=== PATIENT | female | born 1995 | race Caucasian/White ===

== ENCOUNTER 2019-12-04 08:04 | Inpatient (IN) | payer OTHER, SELFPAY ==
[~2019-12-04] VITALS: Ht 165.1 cm; Wt 84.3 kg
[2019-12-04] MEDS ORDERED: FERR325T3 PO (08:26)
[2019-12-04] MEDS ORDERED: VENL75TA2 PO (08:26)
[2019-12-04] MEDS ORDERED: VITATAB74 PO (08:26)
[2019-12-04] MEDS ORDERED: FLUT22IN INH (08:26)
[2019-12-04] MEDS ORDERED: FLON1SPR NARES (08:26)
[2019-12-04] MEDS ORDERED: LEVA45AE INH (08:26)
[2019-12-04] MEDS ORDERED: MULTCAP PO (08:26)
[2019-12-04 09:06] LABS: HEMATOCRIT 43.2 % (42.0-52.0); HEMOGLOBIN 14.5 g/dl (13.5-17.5); MEAN CORPUSCULAR HEMOGLOBIN 29.5 pg (27.0-33.0); MEAN CORPUSCULAR HGB CONC 33.6 g/dl (32.0-36.5); PLATELET COUNT, AUTOMATED 311 10^3/uL (150-450); RED BLOOD COUNT 4.91 10^6/uL (4.30-6.10); WHITE BLOOD COUNT 5.8 10^3/uL (4.0-10.0)
[2019-12-04 09:25] LABS: AMPHETAMINES LEVEL URINE NEGATIVE (NEGATIVE); BARBITURATES URINE NEGATIVE (NEGATIVE); BENZODIAZEPINES URINE NEGATIVE (NEGATIVE); CANNABINOIDS URINE NEGATIVE (NEGATIVE); COCAINE METABOLITE URINE NEGATIVE (NEGATIVE); METHADONE URINE NEGATIVE (NEGATIVE); OPIATES URINE NEGATIVE (NEGATIVE); PHENCYCLIDINE URINE NEGATIVE (NEGATIVE)
[2019-12-04 09:33] LABS: ACETAMINOPHEN LEVEL < 2.0 UG/ML (10.0-30.0); ALBUMIN 3.9 GM/DL (3.2-5.2); ALT/SGPT 38 U/L (12-78); BILIRUBIN,DIRECT 0.1 MG/DL (0.0-0.2); BILIRUBIN,TOTAL 0.4 MG/DL (0.2-1.0); BLOOD UREA NITROGEN 7 MG/DL (7-18); CALCIUM LEVEL 8.9 MG/DL (8.5-10.1); CARBON DIOXIDE LEVEL 28 MEQ/L (21-32); CHLORIDE LEVEL 105 MEQ/L (98-107); CREATININE FOR GFR 0.92 MG/DL (0.70-1.30); ETHYL ALCOHOL (ETHANOL) 0.004 % (0.000-0.010); GLOMERULAR FILTRATION RATE > 60.0 (>60); GLUCOSE, FASTING 87 MG/DL (70-100); POTASSIUM SERUM 3.7 MEQ/L (3.5-5.1); SALICYLATE LEVEL < 1.7 MG/DL (5.0-30.0); SODIUM LEVEL 140 MEQ/L (136-145); TOTAL PROTEIN 7.7 GM/DL (6.4-8.2)
[2019-12-04] MEDS ORDERED: MULT-90 PO (13:43)
[2019-12-04] MEDS ORDERED: VENL37.52 PO (13:43)
[2019-12-04] MEDS ORDERED: ALLE180T33 PO (13:43)
[2019-12-04] MEDS ORDERED: MAALOX 30 ML SUSP *UDC PO PRN (15:15)
[2019-12-04] MEDS ORDERED: MOM 30ML SUSPENSION UDC PO PRN (15:15)
[2019-12-04 16:03] VITALS: BP 146/88
[2019-12-05] MEDS: traZODone 50 MG TAB PO PRN ×2 (00:29→21:14)
[2019-12-05 06:16] VITALS: BP 124/67
--- NOTE | 2019-12-05 09:45 | HPEPDOC ---
[facility] Medical History & Physical Date of Admission December 04, 2019 Date of Service: December 05, 2019 History and Physical CHIEF COMPLAINT: Medical H&P for [facility] patient. HISTORY OF PRESENT ILLNESS: 24 yo female admitted to [facility] for suicide attempt, patient cut her left wrist. Denies any medical complaints. PAST MEDICAL HISTORY: Seasonal allergies PAST SURGICAL HISTORY: Denies ALLERGIES: Please see below. REVIEW OF SYSTEMS: Negative except as per HPI. HOME MEDICATIONS: Please see below. PHYSICAL EXAMINATION: VITAL SIGNS: See below General: NAD, sitting comfortably in chair HEENT: NC/AT, EOMI, PERRL Lungs: CTA B/L Heart: +S1S2, RRR Abd: soft, NT, +BS, obese Ext: no edema, superficial laceration left wrist LABORATORY DATA: See below. MICROBIOLOGY: Please see below. ASSESSMENT: 24 yo female admitted to [facility] for suicide attempt/ideation, with left wrist laceration. #SI - follow as per primary team, psychiatry Vital Signs Vital Signs Date Time Temp Pulse Resp B/P (MAP) Pulse Ox O2 Delivery O2 Flow Rate FiO2 12/05/19 06:16 97.8 98 12 124/67 (86) 99 12/04/19 08:10 Room Air Home Medications Scheduled Ferrous Sulfate (Ferrous Sulfate) 325 Mg Tablet.dr, 325 MG PO QHS Fexofenadine HCl (Adalgisa Allergy) 180 Mg Tablet, 180 MG PO DAILY Fluticasone Propionate (Flonase Allergy Relief) 9.9 Ml [place].susp, 1 SPRAY NARES DAILY Fluticasone Propionate (Flovent Hfa) 220 Mcg/Act Aer.w.adap, 1 PUFF INH DAILY Multivitamin (Multivitamin) 1 Each Tablet, 1 TAB PO QHS Venlafaxine HCl (Venlafaxine HCl ER) 37.5 Mg Cap.er.24h, 75 MG PO DAILY Scheduled PRN Levalbuterol Tartrate (Levalbuterol Tartrate Hfa) 15 Gm Hfa.aer.ad, 2 PUFF INH QID PRN for SHORTNESS OF BREATH Allergies Coded Allergies: No Known Allergies (Unverified , 12/04/19) A-FIB/CHADSVASC A-FIB History Current/History of A-Fib/PAF?: No JUANI BROOKS MD December 05, 2019 09:45
[2019-12-05] MEDS: VENLAFAXINE 37.5 MG TAB PO SCH (10:34)
--- NOTE | 2019-12-05 11:40 | MHHPEPDOC ---
General Date Of Admission: December 04, 2019 Legal Status: 9.39 Chief Complaint "Depression". History of Present Illness HISTORY OF THE PRESENT ILLNESS: Patient is a 24 -year-old , female, who as per ED result: "Patient is a dependent, whose is deployed to [place]. She reports h/o deressive episodes since 2013, with therapy while in college & medication from her PCP in [place]. She states that her was originally scheduled to return from deployment in January, however that was suddenly moved up due to the COVID-19 pandemic. With that plan, she moved here from [place] 1.5 months ago so that she'd be here when he arrived. She reports that his return was abruptly cancelled when 50% of the replacement soldiers tested positive, leaving his unit stuck there until the original return date in January. She describes essentially having nobody here, as her family remains in [place]. She says that she has met "a few" people since arriving here, however essentially sits alone in her home all day. "I don't do well alone all the time, which is why I stayed back home while my was deployed". Patient states that she has been gradually becoming more depressed since her arrival here, reaching the point of feeling suicidal over the last coule of days. She says that she was despondent and having thoughts of suicide last night, when she engaged in self-harm. She denies having any previous h/o suicidal or self-injurious behavior. She states that the cuts were too painful to ever attempt suicide by that method, although has thought about pills. Patient appears quite distressed, especially when describing these feelings. She was crying though nearly the entire interview, noting that she sometimes finds herself laying on the bathroom floor, crying at home. Additional sx include poor sleep & appetite, with weight loss.." Psychiatric Review of Systems Depression (2 or more weeks): depressed mood, anhedonia, insomnia/hypersomnia, feelings of excess/guilt, feelings of worthlesness (hopeless and helpless), decreased energy, difficulty concentrating, appetite changes, psychomotor changes Oliva (4 or more days of): denies Psychosis: denies PTSD: denies Anxiety: stressor related anxiety, panic attacks Anxiety/ 6 months or more of: easily fatigued, difficulty concentrating, sleep disturbance Past Psychiatric History Previous Psychiatric Diagnosis: Depression at 17 Previous Psychiatric Admissions: No, this is her first hospitalization Suicide Attempts: Denies Psychiatric Follow-up: Denies Psychiatric medications: Sertraline for awhile, Bupropion ( triggered anxiety), Venlafaxine. Her PCP used to prescribe them Past Medical History Medical Problems Ashma and seasonal allergies. 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 He has chronic lymphocytic leukemia, asthma and allergies. Mom has osteopenia Psychiatric Disorders: Yes (sister had depression) Addiction: Yes (Maternal grandfather was an alcoholic) Suicide Attemps/Completions: No Addiction History alcohol (ocassionally), other (marijuana, but is occasional) Social History Childhood: She says her childhood was sheltered, she feels ambivalent towards it, but overall she thinks it was fine. Grew up with both parents, she has one sister, ( 4 years older than the patient). She liked school but she felt she didn't thrive in College. She has bullied but it didn't affect her. Denies legal problems. , she doesn't have any children Abuse/Trauma: None Current Living Situation: Education: . Employment: . Social Support: . Legal: . Marital: . Mental Status Examination General Appearance: well groomed, appears stated age, hospital scubs/clothing Build: overweight Demeanor: average Eye Contact: average Activity: average Behavior: cooperative Speech: clear, spontaneous, reg/rate,rhythm,volume Mood: anxious, irritable Affect: full, appropriate, congruent, anxious Thought Process: logical/linear Thought Content (Delusions): none reported Thought Content (Other): none reported Thought Content (Aggressive): none reported Perception (Hallucinations): none reported Perception (Other): none reported Cognition (Impairment of): none reported Cognition(Intelligence Est.): average Oriented: Awake, Alert, Oriented times three Insight: poor Judgment: Improving Psychosis: Denies Diagnoses 1. Major Depressive disorder, recurrent, moderate 2. Adjustment disorder with anxious/depressed mood A-FIB/CHADSVASC A-FIB History Current/History of A-Fib/PAF?: No Current PO Anticoag Therapy: No Age/Risk Factor Scoring CHADSVASC: CHADSVASC Response (Comments) Value Age Risk Factor Age < 65 years old 0 Gender Risk Factor Female 1 Hx of CHF No 0 Hx of HTN No 0 Hx of Stroke/TIA/or VTE No 0 Hx of Diabetes No 0 Hx of Vascular Disease No 0 Total 1 Treatment Treatment ordered: NONE Reason Anticoagulant not given: Not indicated/[id number] Assessment The patient feels lonely, her was recently deployed to [place]. She asked her sister to call the [employer] to have him come back to this area. She could have been trying to manipulate the situation, in order to have him back home. She mentions she has been depressed before, she has taken different antidepressants, amongst them: Sertraline, Wellbutrin and lastly Venlafaxine. She said she took her 75 mgs Po daily dose the day before she came to the Hospital. She would like to continue taking her medication. Initial Treatment Plan 1. Patient was admitted on a [9.39] status. 2. Complete history was obtained. 3. With patients permission, family will be contacted and database will be expanded. 4. Patients medication regimen will be reviewed and changed accordingly. 5. Patient will be provided with protected environment. 6. Patient will be treated with individual, group, and milieu therapies. 7. Patient will receive supportive psych-education. 8. Discharge planning will commence immediately. 9. Outpatient follow-up treatment will be strongly recommended. 10. The initial treatment plan will focus initially on: * Depression. * Risk for suicide * ineffective coping ESTIMATED LENGTH OF STAY: 2-3 DAYS. TIME SPENT COUNSELING AND COORDINATING INITIAL CARE: 60 minutes. Vital Signs Vital Signs Date Time Temp Pulse Resp B/P (MAP) Pulse Ox O2 Delivery O2 Flow Rate FiO2 12/05/19 06:16 97.8 98 12 124/67 (86) 99 12/04/19 08:10 Room Air Medications Scheduled Ferrous Sulfate (Ferrous Sulfate) 325 Mg Tablet.dr, 325 MG PO QHS, (Reported) Fexofenadine HCl (Adalgisa Allergy) 180 Mg Tablet, 180 MG PO DAILY, (Reported) Fluticasone Propionate (Flonase Allergy Relief) 9.9 Ml [place].susp, 1 SPRAY NARES DAILY, (Reported) Fluticasone Propionate (Flovent Hfa) 220 Mcg/Act Aer.w.adap, 1 PUFF INH DAILY, (Reported) Multivitamin (Multivitamin) 1 Each Tablet, 1 TAB PO QHS, (Reported) Venlafaxine HCl (Venlafaxine HCl ER) 37.5 Mg Cap.er.24h, 75 MG PO DAILY, (Reported) Scheduled PRN Levalbuterol Tartrate (Levalbuterol Tartrate Hfa) 15 Gm Hfa.aer.ad, 2 PUFF INH QID PRN for SHORTNESS OF BREATH, (Reported) Allergies Coded Allergies: No Known Allergies (Unverified , 12/04/19) IAN GONZALEZ MD December 05, 2019 10:21
[2019-12-05] MEDS: FEXOFENADINE 60 MG TAB PO SCH (14:11)
[2019-12-05] MEDS: LEVALBUTEROL HFA 45MCG/ACT 15 GM INHALER INH SCH ×2 (16:31→21:00)
[2019-12-05] MEDS: FLUTICASONE HFA 220 MCG 12 GM INHALER (FLOVENT) INH SCH (16:31)
[2019-12-05 16:37] VITALS: BP 116/65
[2019-12-05] MEDS: FERROUS SULFATE 325MG TAB PO SCH (21:14)
[2019-12-05] MEDS: MULTIVITAMINS/MINERALS THERAP 1 TAB PO SCH (21:14)
[2019-12-06 06:18] VITALS: BP 131/69
[2019-12-06] MEDS: FLUTICASONE HFA 220 MCG 12 GM INHALER (FLOVENT) INH SCH (08:27)
[2019-12-06] MEDS: VENLAFAXINE 37.5 MG TAB PO SCH (08:28)
[2019-12-06] MEDS: FEXOFENADINE 60 MG TAB PO SCH (08:28)
[2019-12-06] MEDS ORDERED: LEVALBUTEROL HFA 45MCG/ACT 15 GM INHALER INH PRN (08:45)
[2019-12-06] MEDS: FLUTICASONE PROP 0.05% NASAL SPRAY 16 GM (FLONASE) NARES SCH (09:50)
--- NOTE | 2019-12-06 11:58 | MHIPNPDOC ---
[facility] Progress Note Progress Note DATE OF SERVICE: 12/06/19 HISTORY: HISTORY OF THE PRESENT ILLNESS: Patient is a 24 -year-old , female, who as per ED result: "Patient is a dependent, whose is deployed to [place]. She reports h/o deressive episodes since 2013, with therapy while in college & medication from her PCP in [place]. She states that her was originally scheduled to return from deployment in January, however that was suddenly moved up due to the COVID-19 pandemic. With that plan, she moved here from [place] 1.5 months ago so that she'd be here when he arrived. She reports that his return was abruptly cancelled when 50% of the replacement soldiers tested positive, leaving his unit stuck there until the original return date in January. She describes essentially having nobody here, as her family remains in [place]. She says that she has met "a few" people since arriving here, however essentially sits alone in her home all day. "I don't do well alone all the time, which is why I stayed back home while my was deployed". Patient states that she has been gradually becoming more depressed since her arrival here, reaching the point of feeling suicidal over the last coule of days. She says that she was despondent and having thoughts of suicide last night, when she engaged in self-harm. She denies having any previous h/o suicidal or self-injurious behavior. She states that the cuts were too painful to ever attempt suicide by that method, although has thought about pills. Patient appears quite distressed, especially when describing these feelings. She was crying though nearly the entire interview, noting that she sometimes finds herself laying on the bathroom floor, crying at home. Additional sx include poor sleep & appetite, with weight loss.." VITAL SIGNS: See below. NEW TEST RESULTS: See below CURRENT MEDICATIONS: See below. Mental Status Examination General Appearance: well groomed, appears stated age, hospital scrubs/clothing Build: overweight Demeanor: cooperative Eye Contact: average Activity: average Behavior: cooperative Speech: clear, spontaneous, reg/rate,rhythm,volume Mood: "I'm OK" Affect: Congruent with mood Thought Process: logical/linear Thought Content (Delusions): none reported Thought Content (Other): Denies SI/HI, thought delusions Thought Content (Aggressive): none reported Perception (Hallucinations): none reported Perception (Other): none reported Cognition (Impairment of): none reported Cognition(Intelligence Est.): average Oriented: Awake, Alert, Oriented times three Insight: poor Judgment: Improving Psychosis: Denies Diagnoses 1. Major Depressive disorder, recurrent, moderate 2. Adjustment disorder with anxious/depressed mood ASSESSMENT: Patient agrees that she needs therapy, she says she will seek help at [facility]. She has agreed with medication increse to 112.5 mgs PO daily, she is actually on 75 mgs Po daily MANAGEMENT PLAN: As above TIME SPENT: 15 minutes. Vital Signs Vital Signs Date Time Temp Pulse Resp B/P (MAP) Pulse Ox O2 Delivery O2 Flow Rate FiO2 12/06/19 06:18 98.3 65 12 131/69 (89) 99 Room Air Current Medications Current Medications Medications (Trade) Dose Ordered Sig/Jennifer Route PRN Reason Start Time Stop Time Status Last Admin Dose Admin Acetaminophen (Tylenol Tab) 650 mg Q6HP PRN PO HEADACHE or DISCOMFORT 12/04/19 15:15 Al Hydrox/Mg Hydrox/Simethicone (Mylanta) 30 ml Q4HP PRN PO HEARTBURN/INDIGESTION 12/04/19 15:15 Ferrous Sulfate (Ferrous Sulfate) 325 mg QHS PO 12/05/19 21:00 12/05/19 21:14 Fexofenadine HCl (Adalgisa) 180 mg DAILY PO 12/05/19 09:00 12/06/19 08:28 Fluticasone Propionate (Flonase 0.05% Nasal [place]) 1 spray DAILY NARES 12/06/19 09:00 12/06/19 09:50 Fluticasone Propionate (Flovent Hfa 220mcg) 1 puff DAILY INH 12/05/19 09:00 12/06/19 08:27 Home Med (Med Rec Complete!) ASDIRECTED XX 12/04/19 13:45 12/04/19 13:46 DC Levalbuterol HCl (Xopenex Hfa) 2 puff QID INH 12/05/19 17:00 12/06/19 08:30 DC Levalbuterol HCl (Xopenex Hfa) 2 puff QIDP PRN INH SHORTNESS OF BREATH 12/06/19 08:45 Magnesium Hydroxide (Milk Of Magnesia) 30 ml DAILYPRN PRN PO CONSTIPATION 12/04/19 15:15 Multivitamins (Theragram-M) 1 tab QHS PO 12/05/19 21:00 12/05/19 21:14 Trazodone HCl (Desyrel) 50 mg QHSP PRN PO INSOMNIA 12/04/19 15:15 12/05/19 21:14 Venlafaxine HCl (Effexor) 75 mg QAM PO 12/05/19 09:00 12/06/19 08:28 Allergies Coded Allergies: No Known Allergies (Unverified , 12/04/19) IAN GONZALEZ MD December 06, 2019 11:33
[2019-12-06 18:00] VITALS: BP 123/81
[2019-12-06] MEDS: ACETAMINOPHEN TAB 650MG DOSE (2X325MG) PO PRN (20:07)
[2019-12-06] MEDS: MULTIVITAMINS/MINERALS THERAP 1 TAB PO SCH (20:07)
[2019-12-06] MEDS: FERROUS SULFATE 325MG TAB PO SCH (20:07)
[2019-12-06] MEDS: traZODone 50 MG TAB PO PRN (21:33)
[2019-12-07 05:53] VITALS: BP 116/58
[2019-12-07] MEDS: VENLAFAXINE 37.5 MG TAB PO SCH (08:30)
[2019-12-07] MEDS: FEXOFENADINE 60 MG TAB PO SCH (08:30)
[2019-12-07] MEDS: FLUTICASONE PROP 0.05% NASAL SPRAY 16 GM (FLONASE) NARES SCH (08:31)
[2019-12-07] MEDS: FLUTICASONE HFA 220 MCG 12 GM INHALER (FLOVENT) INH SCH (08:31)
[2019-12-07] MEDS ORDERED: VENLAFAXINE 37.5 MG TAB PO SCH (09:00)
--- NOTE | 2019-12-07 09:26 | MHIPNPDOC ---
[facility] Progress Note Progress Note DATE OF SERVICE: 12/07/19 HISTORY: . VITAL SIGNS: See below. NEW TEST RESULTS: . CURRENT MEDICATIONS: See below. MENTAL STATUS EXAMINATION: Patient is a -year old female, who is . Speech: Is . Language skills are . Thought processes including: . Thought content: . Abstract reasoning, and computation: . Description of asso ciations: . Description of abnormal or psychotic thoughts: . Judgment: . Insight: [very limited, good, fair. poor]. Orientation: . Recent and remote memory: . Attention span and concentration: . Language: . Fund of knowledge: . Mood: . Affect: . DIAGNOSES: 1. . 2. . 3. . ASSESSMENT: MANAGEMENT PLAN: . TIME SPENT: minutes. Vital Signs Vital Signs Date Time Temp Pulse Resp B/P (MAP) Pulse Ox O2 Delivery O2 Flow Rate FiO2 12/07/19 05:53 98.4 77 14 116/58 (77) 12/06/19 06:18 99 Room Air Vital Signs Date Time Temp Pulse Resp B/P (MAP) Pulse Ox O2 Delivery O2 Flow Rate FiO2 12/07/19 05:53 98.4 77 14 116/58 (77) 12/06/19 06:18 99 Room Air Current Medications Current Medications Medications (Trade) Dose Ordered Sig/Jennifer Route PRN Reason Start Time Stop Time Status Last Admin Dose Admin Acetaminophen (Tylenol Tab) 650 mg Q6HP PRN PO HEADACHE or DISCOMFORT 12/04/19 15:15 12/06/19 20:07 Al Hydrox/Mg Hydrox/Simethicone (Mylanta) 30 ml Q4HP PRN PO HEARTBURN/INDIGESTION 12/04/19 15:15 Ferrous Sulfate (Ferrous Sulfate) 325 mg QHS PO 12/05/19 21:00 12/06/19 20:07 Fexofenadine HCl (Adalgisa) 180 mg DAILY PO 12/05/19 09:00 12/07/19 08:30 Fluticasone Propionate (Flonase 0.05% Nasal [place]) 1 spray DAILY NARES 12/06/19 09:00 12/07/19 08:31 Fluticasone Propionate (Flovent Hfa 220mcg) 1 puff DAILY INH 12/05/19 09:00 12/07/19 08:31 Home Med (Med Rec Complete!) ASDIRECTED XX 12/04/19 13:45 12/04/19 13:46 DC Levalbuterol HCl (Xopenex Hfa) 2 puff QID INH 12/05/19 17:00 12/06/19 08:30 DC Levalbuterol HCl (Xopenex Hfa) 2 puff QIDP PRN INH SHORTNESS OF BREATH 12/06/19 08:45 Magnesium Hydroxide (Milk Of Magnesia) 30 ml DAILYPRN PRN PO CONSTIPATION 12/04/19 15:15 Multivitamins (Theragram-M) 1 tab QHS PO 12/05/19 21:00 12/06/19 20:07 Trazodone HCl (Desyrel) 50 mg QHSP PRN PO INSOMNIA 12/04/19 15:15 12/06/19 21:33 Venlafaxine HCl (Effexor) 37.5 mg DAILY PO 12/07/19 09:00 UNV Venlafaxine HCl (Effexor) 75 mg QAM PO 12/05/19 09:00 12/06/19 11:45 DC 12/06/19 08:28 Venlafaxine HCl (Effexor) 112.5 mg DAILY PO 12/07/19 09:00 12/07/19 08:30 Allergies Coded Allergies: No Known Allergies (Unverified , 12/04/19) Initial Treatment Plan 1. Patient was admitted on a [9.39] status. 2. Complete history was obtained. 3. With patients permission, family will be contacted and database will be expanded. 4. Patients medication regimen will be reviewed and changed accordingly. 5. Patient will be provided with protected environment. 6. Patient will be treated with individual, group, and milieu therapies. 7. Patient will receive supportive psych-education. 8. Discharge planning will commence immediately. 9. Outpatient follow-up treatment will be strongly recommended. 10. The initial treatment plan will focus initially on: * Depression. * Risk for suicide. ESTIMATED LENGTH OF STAY: - DAYS. TIME SPENT COUNSELING AND COORDINATING INITIAL CARE: minutes. Medications Scheduled Ferrous Sulfate (Ferrous Sulfate) 325 Mg Tablet.dr, 325 MG PO QHS, (Reported) Fexofenadine HCl (Adalgisa Allergy) 180 Mg Tablet, 180 MG PO DAILY, (Reported) Fluticasone Propionate (Flonase Allergy Relief) 9.9 Ml [place].susp, 1 SPRAY NARES DAILY, (Reported) Fluticasone Propionate (Flovent Hfa) 220 Mcg/Act Aer.w.adap, 1 PUFF INH DAILY, (Reported) Multivitamin (Multivitamin) 1 Each Tablet, 1 TAB PO QHS, (Reported) Venlafaxine HCl (Venlafaxine HCl ER) 37.5 Mg Cap.er.24h, 75 MG PO DAILY, (Reported) Scheduled PRN Levalbuterol Tartrate (Levalbuterol Tartrate Hfa) 15 Gm Hfa.aer.ad, 2 PUFF INH QID PRN for SHORTNESS OF BREATH, (Reported) MICHAEL PERALTA DO December 07, 2019 09:26
--- NOTE | 2019-12-07 09:45 | MHDSPDOC ---
[facility] Discharge Summary Discharge Summary DATE OF ADMISSION: December 04, 2019 at 15:10 DATE OF DISCHARGE: DISCHARGE DIAGNOSES: 1. . 2. . REASON FOR ADMISSION: CONSULTANTS INVOLVED: TREATMENT AND PROGRESS ON THE UNIT : . HOSPITAL COURSE: DISCHARGE ASSESSMENT: MENTAL STATUS EXAMINATION ON DISCHARGE: Patient is a -year old female, who is . Speech is . Language skills are . Thought processes including: . Thought content: . Abstract reasoning, and computation: . Description of associations: . Description of abnormal or psychotic thoughts: . Judgment: . Insight: . Orientation to . Recent and remote memory: . Attention span and concentration: . Language: . Fund of knowledge: . Mood: . Affect: . MEDICATIONS ON DISCHARGE: - for . - for . - for . PLAN/FOLLOWUP ARRANGEMENTS: . The amount of time spent in the coordination of care for this patient was approximately minutes. Vital Signs/I&Os Vital Signs Date Time Temp Pulse Resp B/P (MAP) Pulse Ox O2 Delivery O2 Flow Rate FiO2 12/07/19 05:53 98.4 77 14 116/58 (77) 12/06/19 06:18 99 Room Air Medications Scheduled Ferrous Sulfate (Ferrous Sulfate) 325 Mg Tablet.dr, 325 MG PO QHS, (Reported) Fexofenadine HCl (Adalgisa Allergy) 180 Mg Tablet, 180 MG PO DAILY, (Reported) Fluticasone Propionate (Flonase Allergy Relief) 9.9 Ml [place].susp, 1 SPRAY NARES DAILY, (Reported) Fluticasone Propionate (Flovent Hfa) 220 Mcg/Act Aer.w.adap, 1 PUFF INH DAILY, (Reported) Multivitamin (Multivitamin) 1 Each Tablet, 1 TAB PO QHS, (Reported) Venlafaxine HCl (Venlafaxine HCl ER) 37.5 Mg Cap.er.24h, 75 MG PO DAILY, (Reported) Scheduled PRN Levalbuterol Tartrate (Levalbuterol Tartrate Hfa) 15 Gm Hfa.aer.ad, 2 PUFF INH QID PRN for SHORTNESS OF BREATH, (Reported) Allergies Coded Allergies: No Known Allergies (Unverified , 12/04/19) MICHAEL PERALTA DO December 07, 2019 09:45
--- NOTE | 2019-12-07 09:51 | MHIPNPDOC ---
Text Note Date of Service The patient was seen on 12/07/19. NOTE 24-year-old woman with a history of situational depression presents for follow- up, she initially wanted to leave but subsequent he changed her mind quite quickly. The patient has notably been unengaged in treatment primarily playing cards in the lounge. She is had no other behavioral problems and reports that her depression is "fine" with no loss of interest, fatigue or anxiety problems. She asked to stay another night on a voluntary understanding. Current Medications Medications (Trade) Dose Ordered Sig/Jennifer Route PRN Reason Start Time Stop Time Status Last Admin Dose Admin Acetaminophen (Tylenol Tab) 650 mg Q6HP PRN PO HEADACHE or DISCOMFORT 12/04/19 15:15 12/06/19 20:07 Al Hydrox/Mg Hydrox/Simethicone (Mylanta) 30 ml Q4HP PRN PO HEARTBURN/INDIGESTION 12/04/19 15:15 Ferrous Sulfate (Ferrous Sulfate) 325 mg QHS PO 12/05/19 21:00 12/06/19 20:07 Fexofenadine HCl (Adalgisa) 180 mg DAILY PO 12/05/19 09:00 12/07/19 08:30 Fluticasone Propionate (Flonase 0.05% Nasal [place]) 1 spray DAILY NARES 12/06/19 09:00 12/07/19 08:31 Fluticasone Propionate (Flovent Hfa 220mcg) 1 puff DAILY INH 12/05/19 09:00 12/07/19 08:31 Home Med (Med Rec Complete!) ASDIRECTED XX 12/04/19 13:45 12/04/19 13:46 DC Levalbuterol HCl (Xopenex Hfa) 2 puff QID INH 12/05/19 17:00 12/06/19 08:30 DC Levalbuterol HCl (Xopenex Hfa) 2 puff QIDP PRN INH SHORTNESS OF BREATH 12/06/19 08:45 Magnesium Hydroxide (Milk Of Magnesia) 30 ml DAILYPRN PRN PO CONSTIPATION 12/04/19 15:15 Multivitamins (Theragram-M) 1 tab QHS PO 12/05/19 21:00 12/06/19 20:07 Trazodone HCl (Desyrel) 50 mg QHSP PRN PO INSOMNIA 12/04/19 15:15 12/06/19 21:33 Venlafaxine HCl (Effexor) 37.5 mg DAILY PO 12/07/19 09:00 UNV Venlafaxine HCl (Effexor) 75 mg QAM PO 12/05/19 09:00 12/06/19 11:45 DC 12/06/19 08:28 Venlafaxine HCl (Effexor) 112.5 mg DAILY PO 12/07/19 09:00 12/07/19 08:30 Review of Systems Review of Systems General: Reports: Normal Appetite Cardiovascular: Denies: Chest Pain, Palpitations, Orthopnea, Paroxysmal Noc. Dyspnea, Lt Headedness Gastrointestinal: Denies: Nausea, Vomiting, Abdominal Pain, Diarrhea, Constipation, Melena, Hematochezia, Other Symptoms Psych: Reports: Mood Normal Mental Status Examination General Appearance: well groomed Build: average Demeanor: average Eye Contact: average Activity: average Behavior: cooperative Speech: clear Mood: euthymic Affect: full Thought Process: logical/linear Thought Content (Delusions): none reported Thought Content (Other): none reported Thought Content (Aggressive): none reported Perception (Hallucinations): none reported Perception (Other): none reported Cognition (Impairment of): none reported Cognition(Intelligence Est.): average Oriented: Awake Insight: fair Judgment: Fair Psychosis: Denies Assessment 24-year-old woman with likely cluster B personality traits presents follow-up, she will likely be discharged tomorrow as she does not meet involuntary criteria. Her situational problem is likely exacerbated by underling cluster B personality traits. Problem List Problems: (1) Depression Status: Acute Response to Treatment: Improving Discussed With: Nurse, Patient Problem Text: Continue Effexor 112.5 XL daily (2) Suicidal ideation Status: Resolved (3) Adjustment disorder Status: Resolved (4) Cluster B personality disorder Status: Chronic Response to Treatment: Stable Discussed With: Nurse Problem Text: Monitor for any decompensation or behavioral problems Vital Signs Vital Signs Date Time Temp Pulse Resp B/P (MAP) Pulse Ox O2 Delivery O2 Flow Rate FiO2 12/07/19 05:53 98.4 77 14 116/58 (77) 12/06/19 06:18 99 Room Air Medications Scheduled Ferrous Sulfate (Ferrous Sulfate) 325 Mg Tablet.dr, 325 MG PO QHS, (Reported) Fexofenadine HCl (Adalgisa Allergy) 180 Mg Tablet, 180 MG PO DAILY, (Reported) Fluticasone Propionate (Flonase Allergy Relief) 9.9 Ml [place].susp, 1 SPRAY NARES DAILY, (Reported) Fluticasone Propionate (Flovent Hfa) 220 Mcg/Act Aer.w.adap, 1 PUFF INH DAILY, (Reported) Multivitamin (Multivitamin) 1 Each Tablet, 1 TAB PO QHS, (Reported) Venlafaxine HCl (Venlafaxine HCl ER) 37.5 Mg Cap.er.24h, 75 MG PO DAILY, (Reported) Scheduled PRN Levalbuterol Tartrate (Levalbuterol Tartrate Hfa) 15 Gm Hfa.aer.ad, 2 PUFF INH QID PRN for SHORTNESS OF BREATH, (Reported) Allergies Coded Allergies: No Known Allergies (Unverified , 12/04/19) MICHAEL PERALTA DO December 07, 2019 09:51
[2019-12-07] MEDS: ACETAMINOPHEN TAB 650MG DOSE (2X325MG) PO PRN (16:45)
[2019-12-07 18:00] VITALS: BP 142/62
[2019-12-07] MEDS: MULTIVITAMINS/MINERALS THERAP 1 TAB PO SCH (20:17)
[2019-12-07] MEDS: FERROUS SULFATE 325MG TAB PO SCH (20:17)
[2019-12-07] MEDS ORDERED: IBUPROFEN 600 MG TAB PO ONE (21:45)
[2019-12-07] MEDS: traZODone 50 MG TAB PO PRN (21:45)
[2019-12-08 06:13] VITALS: BP 123/65
[2019-12-08] MEDS: FLUTICASONE HFA 220 MCG 12 GM INHALER (FLOVENT) INH SCH (08:22)
[2019-12-08] MEDS: FLUTICASONE PROP 0.05% NASAL SPRAY 16 GM (FLONASE) NARES SCH (08:22)
[2019-12-08] MEDS: FEXOFENADINE 60 MG TAB PO SCH (08:22)
[2019-12-08] MEDS: VENLAFAXINE 37.5 MG TAB PO SCH (08:22)
--- NOTE | 2019-12-08 09:06 | MHDSPDOC ---
[facility] Discharge Summary Discharge Summary DATE OF ADMISSION: December 04, 2019 at 15:10 DATE OF DISCHARGE:December 08, 2019 at 16:06 DISCHARGE DIAGNOSES: 1. Unspecified depressive disorder. 2.. Cluster B personality traits. REASON FOR ADMISSION: 24-year-old woman admitted after making passive suicidal statements, she had reportedly threatened to cut herself. CONSULTANTS INVOLVED: hospitalist screening TREATMENT AND PROGRESS ON THE UNIT : the patient was admitted to the inpatient mental health unit, she was initially started on a sufficient antidepressant and observed. She did well without any major problems, she was notably more interested in socializing that engaging in treatment sincerely. She generally did well without any major aggression or suicidal ideation, recurring, she wants to stay longer and was extended for an extra day, at her request.. DISCHARGE ASSESSMENT: 24-year-old woman with likely situational related depression and cluster B personality traits presents in this treated with sufficient antidepressant and supportive treatment The patient at the time of discharge did not meet criteria for involuntary admission/extension due to having a normal mental status exam, fair insight into the situation, They are engaged in the discharge process, as well as being friendly and amenable in behavioral control and havent been engaging in any observed concerning behavior or ideation recently. They decline voluntary extension/admission at this time and must be discharged in good isi, as Im unable to make a case for holding the patient against their will. They may have historical risk factors of admissions and other interactions with psychiatry however, those are not modifiable from a clinical perspective. The patient will need to be discharged in good isi. MENTAL STATUS EXAMINATION ON DISCHARGE: General: Well dressed with good hygiene Speech: Spontaneous and fluid Thought processes: Linear and logical Thought content: Future orientated Abstract reasoning, and computation: Intact Description of associations: Intact Description of abnormal or psychotic thoughts:Denies any suicidal or homicidal ideation. Denies any auditory or visual hallucinations. Does not appear to be responding to internal stimuli. Does not appear to be endorsing any bizarre or paranoid ideation. Judgment: fair Insight: fair Orientation: Alert and orientated 3 Recent and remote memory: Intact Attention span and concentration: Intact Fund of knowledge: Adequate Mood: "okay" Affect: Euthymic with a full range PLAN/FOLLOWUP ARRANGEMENTS: follow-up arrangements made within five days. The amount of time spent in the coordination of care for this patient was approximately 45 minutes. Vital Signs/I&Os Vital Signs Date Time Temp Pulse Resp B/P (MAP) Pulse Ox O2 Delivery O2 Flow Rate FiO2 12/08/19 06:13 98.6 84 12 123/65 (84) 12/06/19 06:18 99 Room Air Medications Scheduled Ferrous Sulfate (Ferrous Sulfate) 325 Mg Tablet.dr, 325 MG PO QHS, (Reported) Fexofenadine HCl (Adalgisa Allergy) 180 Mg Tablet, 180 MG PO DAILY, (Reported) Fluticasone Propionate (Flonase Allergy Relief) 9.9 Ml [place].susp, 1 SPRAY NARES DAILY, (Reported) Fluticasone Propionate (Flovent Hfa) 220 Mcg/Act Aer.w.adap, 1 PUFF INH DAILY, (Reported) Multivitamin (Multivitamin) 1 Each Tablet, 1 TAB PO QHS, (Reported) Venlafaxine HCl (Venlafaxine HCl ER) 37.5 Mg Cap.er.24h, 75 MG PO DAILY, (Reported) Venlafaxine HCl (Venlafaxine HCl ER) 37.5 Mg Cap.er.24h, 37.5 MG PO DAILY for mood for 7 Days, #21 Scheduled PRN Levalbuterol Tartrate (Levalbuterol Tartrate Hfa) 15 Gm Hfa.aer.ad, 2 PUFF INH QID PRN for SHORTNESS OF BREATH, (Reported) Trazodone HCl (Trazodone HCl) 50 Mg Tablet, 50 MG PO QHSP PRN for INSOMNIA for 7 Days, #7 Allergies Coded Allergies: No Known Allergies (Unverified , 12/04/19) MICHAEL PERALTA DO December 08, 2019 09:06
[2019-12-08] MEDS ORDERED: VENL37.52 PO (10:14)
[2019-12-08] MEDS ORDERED: TRAZ-252 PO (10:15)
== END 2019-12-08 16:06 | disposition home or self-care (01) | DRG 881 ==
LOC: M ED 08:04 → EDSEX 08:04 → M ED INP 15:10 → M PSY 15:55
PROVIDERS: ADMIT Psychiatry & Neurology Addiction Medicine; ATTEND Psychiatry & Neurology Addiction Medicine
DX: F32.9 Major depressive disorder, single episode, unspecified (principal); F43.23 Adjustment disorder with mixed anxiety and depressed mood; Z79.899 Other long term (current) drug therapy; S61.512A Laceration without foreign body of left wrist, initial encounter; X78.9XXA Intentional self-harm by unspecified sharp object, initial encounter; Y92.039 Unspecified place in apartment as the place of occurrence of the external cause; Z63.31 Absence of family member due to military deployment; F60.89 Other specific personality disorders

== ENCOUNTER → 2020-07-26 | Outpatient (REF) | payer OTHER ==
[~2020-07-26] MED LIST: ALLE180T33 PO; EFFE37.5 PO; FERR325T3 PO; FLON1SPR NARES; FLUT22IN INH; LEVA45AE INH; MULT-90 PO; MULTCAP PO; TRAZ-252 PO; VENL37.52 PO; VENL75TA2 PO; VITATAB74 PO
== END ==
LOC: M SFHCPLAZ 15:22
PROVIDERS: ATTEND Family Medicine
DX: R51.0 Headache with orthostatic component, not elsewhere classified (principal)

== ENCOUNTER → 2021-01-19 | Outpatient (CLI) | payer OTHER ==
[2021-01-19 16:34] LABS: HEMATOCRIT 43.6 % (36.0-47.0); HEMOGLOBIN 14.1 g/dl (12.0-15.5); MEAN CORPUSCULAR HEMOGLOBIN 29.9 pg (27.0-33.0); MEAN CORPUSCULAR HGB CONC 32.3 g/dl (32.0-36.5); MEAN CORPUSCULAR VOLUME 92.4 fl (80.0-96.0); PLATELET COUNT, AUTOMATED 282 10^3/uL (150-450); RED BLOOD COUNT 4.72 10^6/uL (4.00-5.40); WHITE BLOOD COUNT 5.5 10^3/uL (4.0-10.0)
[2021-01-19 17:07] LABS: ALBUMIN 4.1 GM/DL (3.2-5.2); ALT/SGPT 40 U/L (12-78); BILIRUBIN,TOTAL 0.4 MG/DL (0.2-1.0); BLOOD UREA NITROGEN 11 MG/DL (7-18); CALCIUM LEVEL 9.2 MG/DL (8.5-10.1); CARBON DIOXIDE LEVEL 25 MEQ/L (21-32); CHLORIDE LEVEL 107 MEQ/L (98-107); CREATININE FOR GFR 0.78 MG/DL (0.55-1.30); FREE T4 1.12 NG/DL (0.76-1.46); GLOMERULAR FILTRATION RATE > 60.0 (>60); GLUCOSE, FASTING 86 MG/DL (70-100); POTASSIUM SERUM 4.1 MEQ/L (3.5-5.1); SODIUM LEVEL 141 MEQ/L (136-145); TOTAL PROTEIN 7.4 GM/DL (6.4-8.2)
== END ==
LOC: M PLALAB 12:13
PROVIDERS: ATTEND Physician Assistant
DX: R51.0 Headache with orthostatic component, not elsewhere classified (principal)
CPT/HCPCS: 36415; 80053; 84439; 84443; 85027; 90834; G0463

== ENCOUNTER → 2021-03-01 | Outpatient (REF) | payer OTHER | LOC: M SFHCLERA 16:05 | PROVIDERS: ATTEND Nurse Practitioner Family | DX: J06.9 Acute upper respiratory infection, unspecified (principal) | CPT/HCPCS: 87426; G0463; U0003 ==